=== PATIENT | female | born 1975 | race African-American/Black ===

== ENCOUNTER 2023-07-17 20:35 | Emergency (ER) | payer OTHER ==
[~2023-07-17] VITALS: Ht 157.5 cm; Wt 92.0 kg
[2023-07-17 20:42] VITALS: BP 135/93; PULSE 95; RESP 16; TEMP 98.2; O2SAT 96
[2023-07-17] MEDS ORDERED: CETI10TA11 MT (21:49)
[2023-07-17] MEDS ORDERED: TUSSL MT (21:49)
[2023-07-17] MEDS ORDERED: FLUT9.9S BOTHNSTRLS (21:49)
== END 2023-07-18 01:09 | disposition home or self-care (01) ==
LOC: ER 20:35
DX: J06.9 Acute upper respiratory infection, unspecified (principal)
CPT/HCPCS: 81025; 99282